=== PATIENT | female | born 1960 | race American Indian/Alaskan Native ===

== ENCOUNTER 2016-10-17 18:46 | Inpatient (IN) | payer MEDICARE ==
[2016-10-17 18:47] VITALS: BMI 33.3
[2016-10-17] MEDS ORDERED: Albuterol-Ipratrop 3 mg / 0.5 (3 ml) UD INH STA ×3 (19:17→19:34)
[2016-10-17] MEDS ORDERED: Albuterol-Ipratrop 3 mg / 0.5 (3 ml) UD ONE ×2 (19:37→19:57)
--- NOTE | 2016-10-17 19:47 | ED PDOC ---
HPI: SOB/CHF/COPD Time Seen by Provider: 10/17/16 19:14 Chief Complaint (Nursing): Shortness Of Breath Chief Complaint (Provider): Shortness Of Breath History Per: Patient History/Exam Limitations: no limitations Onset/Duration Of Symptoms: Days (x 1 week) Current Symptoms Are (Timing): Still Present Additional Complaint(s): Jonny is a 56 y/o female with a past medical history of asthma, pulmonary sarcoid, pulmonary hypertension, and CHF, who presents to the emergency department with complaints of shortness of breath associated with chest tightness, and a productive cough and yellow phlegm ongoing x 1 week. Patient denies fever, chills, nausea, vomiting, and diarrhea. Patient reports seeing her PCP/logistic specialist Dr. Lincoln who started her on Prednisone with no improvement in symptoms. Patient sent to ED by Dr. Lincoln. PMD: Dr. Vinnie Lincoln MD Past Medical History Reviewed: Historical Data, Nursing Documentation, Vital Signs Vital Signs: Last Vital Signs Temp 98.3 F 10/18/16 00:45 Pulse 90 10/18/16 00:45 Resp 18 10/18/16 00:45 BP 140/95 H 10/18/16 00:45 Pulse Ox 96 10/18/16 00:45 - Medical History PMH: Anxiety, Asthma, CAD, Cardia Arrhythmia, CHF, COPD, Depression, HTN, Pneumonia Denies: Arthritis, Atrial Fibrillation, Diabetes, HIV, Hypercholesterolemia, Hypothyroidism, Mitral Valve Prolapse, Peripheral Edema, Chronic Kidney Disease , Rheumatoid Arthritis, Seizures, TIA Other PMH: Pulmonary hypertension, pulmonary sarcoid - Surgical History Surgical History: Back Surgery (lumbar) Denies: Pacemaker Other surgeries: Left hip replacement due to traumatic injury, Automated Implantable Cardioverter-Defibrillator (AICD) - Family History Family History: States: Unknown Family Hx - Social History Current smoker - smoking cessation education provided: No Alcohol: None Drugs: Denies - Immunization History Hx Tetanus Toxoid Vaccination: No Hx Influenza Vaccination: No Hx Pneumococcal Vaccination: No - Home Medications Home Medications: Ambulatory Orders Medication Instructions Recorded Albuterol 0.083% [Albuterol 0.083% 2.5 mg NEB BID 10/17/16 Inhal Marilou (2.5 mg/3 ml) UD] Albuterol Sulfate [Proair Hfa] 2 puff NEB PRN PRN 10/17/16 Carvedilol [Coreg] 12.5 mg PO BID 10/17/16 Cyclobenzaprine [Flexeril] 10 mg PO DAILY 10/17/16 Fluticasone/Salmeterol 100/50 2 puff NEB DAILY 10/17/16 [Advair Diskus 100/50] Furosemide [Lasix] 40 mg PO DAILY 10/17/16 Omeprazole [Omeprazole] 40 mg PO DAILY 10/17/16 Potassium Chloride [K-Dur 20 mEq 20 meq PO DAILY 10/17/16 ER Tab] Ramipril [Altace] 10 mg PO DAILY 10/17/16 oxyCODONE [oxyCODONE Immediate 10 mg PO PRN PRN 10/17/16 Release Tab] - Allergies Allergies/Adverse Reactions: Allergies Allergy/AdvReac Type Severity Reaction Status Date / Time No Known Allergies Allergy Verified 08/21/15 22:32 Review of Systems ROS Statement: Except As Marked, All Systems Reviewed And Found Negative Constitutional: Negative for: Fever, Chills Cardiovascular: Positive for: Chest Pain (chest tightness) Respiratory: Positive for: Cough (Productive cough with yellow phlegm production ), Shortness of Breath Gastrointestinal: Negative for: Nausea, Vomiting, Diarrhea Physical Exam - Reviewed Nursing Documentation Reviewed: Yes Vital Signs Reviewed: Yes - Physical Exam Appears: Positive for: Non-toxic, No Acute Distress Head Exam: Positive for: ATRAUMATIC, NORMAL INSPECTION, NORMOCEPHALIC Skin: Positive for: Normal Color, Warm, Dry Eye Exam: Positive for: EOMI, Normal appearance, PERRL ENT: Positive for: Normal ENT Inspection Neck: Positive for: Normal, Painless ROM, Supple Cardiovascular/Chest: Positive for: Regular Rate, Rhythm Respiratory: Positive for: Rhonchi (Bilateral diffuse rhonchi), Other ( Decreased air entry) Gastrointestinal/Abdominal: Positive for: Normal Exam, Soft. Negative for: Tenderness Back: Positive for: Normal Inspection. Negative for: Vertebral Tenderness Extremity: Positive for: Normal ROM. Negative for: Pedal Edema, Calf Tenderness , Other (JVD) Neurologic/Psych: Positive for: Alert, Oriented. Negative for: Motor/Sensory Deficits - Laboratory Results Result Diagrams: 10/17/16 20:29 10/17/16 20:08 - ECG O2 Sat by Pulse Oximetry: 98 (RA) Pulse Ox Interpretation: Normal - Other Rad Chest X-Ray X-Ray: Interpreted by Me, Viewed By Me X-Ray Interpretation: Cardiomegaly and bilateral congestion with AICD present Medical Decision Making Medical Decision Making: Time: 19:30 Initial Impression: 56 y/o female with productive cough, dyspnea, and a past medical history of pulmonary hypertension, pulmonary sarcoid, CHF and asthma with failure of outpatient treatment Initial Plan: --Labs --CXR --EKG --Trial of Lasix (40 mg IV), methylprednisolone (125 mg IV), and Albuterol/ Ipratropium (3 mL INH) --Peak Flow pre/post treatment --Reevaluation Time: 20:30 --Admit to observation for asthma and CHF exacerbation Time: 20:35 --Consulted with Dr. Lincoln who agreed to place patient under his service for asthma exacerbation and CHF Scribe Attestation: Documented by Brandi Quiñones, acting as a scribe for Dewayne Gilmore MD Provider Scribe Attestation: All medical record entries made by the Scribe were at my direction and personally dictated by me. I have reviewed the chart and agree that the record accurately reflects my personal performance of the history, physical exam, medical decision making, and the department course for this patient. I have also personally directed, reviewed, and agree with the discharge instructions and disposition. Disposition - Clinical Impression Clinical Impression: Chronic congestive heart failure, Sarcoidosis, Asthma - Patient ED Disposition Is Patient to be Admitted: Yes Counseled Patient/Family Regarding: Studies Performed, Diagnosis - Disposition Disposition Time: 20:00 Condition: STABLE - Pt Status Changed To: Hospital Disposition Of: Observation
[2016-10-17 20:28] LABS: ALB/GLOB RATIO 1.1 (1.0-2.1); ALT/SGPT 26 U/L (9-52); AST/SGOT 25 U/L (14-36); BLOOD UREA NITROGEN 12 mg/dl (7-17); CALCIUM 9.4 mg/dL (8.4-10.2); GFR AFRICAN-AMERICAN > 60; GFR NON-AFRICAN AMERICAN > 60
[2016-10-17 20:35] LABS: BASO # 0.1 K/uL (0.0-0.2); BASO % 0.5 % (0.0-2.0); EOS # 0.1 K/uL (0.0-0.7); EOS % 0.5 % (0.0-4.0); HEMOGLOBIN 13.1 g/dL (12.0-16.0); LYMPH # 4.7 K/uL (1.0-4.3); LYMPH % 35.6 % (20.0-40.0); MEAN CELL VOLUME 89.6 fl (81.0-99.0); MEAN CORPUSCULAR HGB CONC 32.3 g/dL (33.0-37.0); MEAN PLATELET VOLUME 9.1 fl (7.2-11.7); MONO # 1.3 K/uL (0.0-0.8); MONO % 9.6 % (0.0-10.0); NEUT % 53.8 % (50.0-75.0); RBC 4.53 Mil/uL (3.80-5.20); RED CELL DISTRIBUTION WIDTH 16.5 % (11.5-14.5); WHITE BLOOD COUNT 13.1 K/uL (4.8-10.8)
[2016-10-17 20:41] LABS: B-TYPE NATRIURETIC PEPTIDE 748 pg/ml (0-900)
[2016-10-17 20:53] LABS: PARTIAL THROMBOPLASTIN TIME 32.3 Seconds (25.6-37.1); PROTHROMBIN TIME 10.8 Seconds (9.8-13.1)
[2016-10-17 21:22] LABS: SQUAMOUS EPITHIAL < 1 /hpf (0-5); URINE BACTERIA RARE (<OCC); URINE BILIRUBIN NEGATIVE (NEGATIVE); URINE BLOOD NEGATIVE (NEGATIVE); URINE CLARITY CLEAR (Clear); URINE COLOR STRAW (YELLOW); URINE GLUCOSE (UA) NEG (Normal); URINE LEUKOCYTE ESTERASE TRACE Leu/uL (Negative); URINE NITRATE NEGATIVE (NEGATIVE); URINE PROTEIN NEGATIVE (NEGATIVE); URINE UROBILINOGEN 0.2-1.0 mg/dL (0.2-1.0)
[2016-10-17] MEDS ORDERED: Oxycodone/Acetaminophen 5/325 mg Tab PO STA (22:41)
[2016-10-17] MEDS ORDERED: Oxycodone/Acetaminophen 5/325 mg Tab ONE (23:06)
[2016-10-18] MEDS ORDERED: Sodium Chloride 3% for Inhalation 4 ML VIAL.NEB IH PRN (01:18)
[2016-10-18] MEDS ORDERED: guaiFENesin 200 mg/10 ml Syrup UD PO PRN (01:18)
[2016-10-18] MEDS: Albuterol-Ipratrop 3 mg / 0.5 (3 ml) UD INH SCH ×4 (02:44→19:11)
[2016-10-18] MEDS: Oxycodone/Acetaminophen 5/325 mg Tab PO PRN ×3 (04:47→21:55)
[2016-10-18 07:47] LABS: ABG ALLEN TEST YES; ARTERIAL BLOOD GAS HCO3 29.1 mmol/L (21-28); ARTERIAL BLOOD GAS HEMOGLOBIN 13.6 g/dL (11.7-17.4); ARTERIAL BLOOD GAS O2 CAPACITY 18.5 mL/dL (16-24); ARTERIAL BLOOD GAS O2 CONTENT 18.1 ML/dL (15-23); ARTERIAL BLOOD GAS PCO2 51 mm/Hg (35-45); ARTERIAL BLOOD GAS PO2 78 mm/Hg (80-100); ARTERIAL BLOOD GAS TCO2 33.2 mmol/L (22-28)
--- NOTE | 2016-10-18 08:18 | RAD ---
HISTORY: cough COMPARISON: Chest x-ray performed 10/02/15 TECHNIQUE: Chest, one view. FINDINGS: Examination limited by habitus. LUNGS: Linear atelectasis, left upper lobe. No focal consolidation. Please note that chest x-ray has limited sensitivity for the detection of pulmonary masses. PLEURA: No significant pleural effusion identified. No definite pneumothorax . CARDIOVASCULAR: Single lead left-sided AICD. Heart size appears top normal. OSSEOUS STRUCTURES: Degenerative changes. VISUALIZED UPPER ABDOMEN: Unremarkable. OTHER FINDINGS: None. IMPRESSION: Left-sided AICD. Linear atelectasis, left upper lobe.
[2016-10-18] MEDS: Fluticasone-Salmeterol 100-50mcg Diskus INH SCH ×2 (08:35→16:30)
[2016-10-18] MEDS: Enoxaparin 40 mg Syringe SC SCH (08:37)
[2016-10-18] MEDS: Pantoprazole 40 mg EC Tab PO SCH (08:37)
[2016-10-18] MEDS: Potassium Chloride 20 mEq ER Tab PO SCH (08:37)
[2016-10-18] MEDS: Azithromycin 500 MG in Sodium Chloride 0.9% 250 ML IVPB SCH (08:39)
[2016-10-18] MEDS: methylPREDNISolone 40 MG in Sodium Chloride 0.9% 50 ML IV SCH ×2 (08:39→16:29)
[2016-10-18 10:26] LABS: HEMOGLOBIN 13.2 g/dL (12.0-16.0); MEAN CELL VOLUME 88.6 fl (81.0-99.0); MEAN CORPUSCULAR HEMOGLOBIN 29.2 pg (27.0-31.0); MEAN CORPUSCULAR HGB CONC 32.9 g/dL (33.0-37.0); RBC 4.52 Mil/uL (3.80-5.20); RED CELL DISTRIBUTION WIDTH 16.7 % (11.5-14.5); WHITE BLOOD COUNT 11.2 K/uL (4.8-10.8)
[2016-10-18 10:46] LABS: BLOOD UREA NITROGEN 14 mg/dl (7-17); CALCIUM 9.9 mg/dL (8.4-10.2); GFR AFRICAN-AMERICAN > 60; GFR NON-AFRICAN AMERICAN > 60
[2016-10-18 10:47] LABS: B-TYPE NATRIURETIC PEPTIDE 1020 pg/ml (0-900)
--- NOTE | 2016-10-18 13:48 | CARD ---
APPROVED REPORT EKG Measurement Heart [id number] <Conclusion> Sinus rhythm with occasional premature ventricular complexes Biatrial enlargement Left ventricular hypertrophy T wave abnormality, consider lateral ischemia Abnormal ECG
--- NOTE | 2016-10-18 13:53 | CARD ---
APPROVED REPORT EKG Measurement Heart [id number] <Conclusion> Normal sinus rhythm Left atrial enlargement Nonspecific ST and T wave abnormality Abnormal ECG
--- NOTE | 2016-10-18 23:24 | CP.PCM.CON ---
History of Present Illness - History of Present Illness History of Present Illness: CC: Cough. HPI: I have been requested on cardiology consultation by Dr. Lincoln for this patient who is known to our practice. She has a history of sarcoidosis and cardiomyopathy for which an AICD was implanted. She is is admitted for dyspnea and a productive cough with greenish sputum as well as palpitations. She denies chest pain, fever, chills or any other cardiac complaint. Cardiology is consulted for 8 beats of NSVT. Otherwise the patient has no complaints. Review of Systems - Constitutional Constitutional: As Per HPI - EENT Eyes: As Per HPI Nose/Mouth/Throat: As Per HPI - Cardiovascular Cardiovascular: Palpitations - Respiratory Respiratory: Cough, Excessive Mucous Production - Genitourinary Genitourinary: As Per HPI - Integumentary Integumentary: As Per HPI - Neurological Neurological: As Per HPI - Psychiatric Psychiatric: As Per HPI - Endocrine Endocrine: As Per HPI - Hematologic/Lymphatic Hematologic: As Per HPI Past Patient History - Infectious Disease Hx of Infectious Diseases: None - Past Medical History & Family History Past Medical History?: Yes - Past Social History Alcohol: None Drugs: Denies - CARDIAC Hx Atrial Fibrillation: No Hx Cardia Arrhythmia: Yes Hx Congestive Heart Failure: Yes Hx Hypercholesterolemia: No Hx Hypertension: Yes Hx Mitral Valve Prolapse: No Hx Pacemaker: No Hx Peripheral Edema: No - PULMONARY Hx Asthma: Yes Hx Chronic Obstructive Pulmonary Disease (COPD): Yes Hx Pneumonia: Yes - NEUROLOGICAL Hx Seizures: No Hx Transient Ischemic Attacks (TIA): No - HEENT Hx HEENT Problems: No - RENAL Hx Chronic Kidney Disease: No - ENDOCRINE/METABOLIC Hx Hypothyroidism: No - HEMATOLOGICAL/ONCOLOGICAL Hx Human Immunodeficiency Virus (HIV): No - INTEGUMENTARY Hx Dermatological Problems: No - MUSCULOSKELETAL/RHEUMATOLOGICAL Hx Arthritis: No Hx Rheumatoid Arthritis: No - GASTROINTESTINAL Hx Gastrointestinal Disorders: No - GENITOURINARY/GYNECOLOGICAL Hx Genitourinary Disorders: No - PSYCHIATRIC Hx Anxiety: Yes Hx Depression: Yes - SURGICAL HISTORY Hx Surgeries: Yes Hx Joint Replacement: Yes (LEFT HIP) Other/Comment: BACK SURGERY, AICD placement - ANESTHESIA Hx Anesthesia: Yes Hx Anesthesia Reactions: No Hx Malignant Hyperthermia: No Meds Allergies/Adverse Reactions: Allergies Allergy/AdvReac Type Severity Reaction Status Date / Time No Known Allergies Allergy Verified 08/21/15 22:32 - Medications Medications: Current Medications Albuterol/Ipratropium (Duoneb 3 Mg/0.5 Mg (3 Ml) Ud) 3 ml INH RQ6 [facility] Last Admin: 10/18/16 19:11 Dose: 3 ml Aspirin (Aspirin Chewable) 81 mg PO DAILY [facility] Last Admin: 10/18/16 08:37 Dose: 81 mg Carvedilol (Coreg) 12.5 mg PO Q12 [facility] Last Admin: 10/18/16 21:55 Dose: 12.5 mg Clotrimazole (Lotrimin 1% Cream) 1 applic TOP BID [facility] Last Admin: 10/18/16 16:29 Dose: 1 applic Cyclobenzaprine HCl (Flexeril) 10 mg PO DAILY [facility] Last Admin: 10/18/16 08:36 Dose: 10 mg Enoxaparin Sodium (Lovenox) 40 mg SC DAILY [facility] PRN Reason: Protocol Last Admin: 10/18/16 08:37 Dose: 40 mg Furosemide (Lasix) 40 mg IV DAILY [facility] Last Admin: 10/18/16 08:38 Dose: 40 mg Guaifenesin (Robitussin) 200 mg PO Q4 PRN PRN Reason: Cough Azithromycin 500 mg/ Sodium (Chloride) 250 mls @ 250 mls/hr IVPB DAILY [facility] Last Admin: 10/18/16 08:39 Dose: 250 mls/hr Methylprednisolone 40 mg/ (Sodium Chloride) 50 mls @ 100 mls/hr IV Q8 [facility] Last Admin: 10/18/16 16:29 Dose: 100 mls/hr Ondansetron HCl (Zofran Inj) 4 mg IVP Q4 PRN PRN Reason: Nausea/Vomiting Last Admin: 10/18/16 17:44 Dose: 4 mg Oxycodone/Acetaminophen (Percocet 5/325 Mg Tab) 1 tab PO Q4 PRN PRN Reason: Pain, moderate (4-7) Stop: 10/21/16 01:19 Last Admin: 10/18/16 21:55 Dose: 1 tab Pantoprazole Sodium (Protonix Ec Tab) 40 mg PO DAILY [facility] Last Admin: 10/18/16 08:37 Dose: 40 mg Potassium Chloride (K-Dur 20 Meq Er Tab) 20 meq PO DAILY [facility] Last Admin: 10/18/16 08:37 Dose: 20 meq Ramipril (Altace) 10 mg PO DAILY [facility] Last Admin: 10/18/16 08:36 Dose: 10 mg Fluticasone/Salmeterol (Advair Diskus 100/50) 1 puff INH BID [facility] Last Admin: 10/18/16 16:30 Dose: 1 puff Physical Exam - Constitutional Appears: Well, Non-toxic, No Acute Distress - Head Exam Head Exam: NORMAL INSPECTION, NORMOCEPHALIC - Eye Exam Eye Exam: Normal appearance, PERRL - ENT Exam ENT Exam: Mucous Membranes Moist - Neck Exam Neck exam: Positive for: Normal Inspection - Respiratory Exam Respiratory Exam: Clear to Auscultation Bilateral, NORMAL BREATHING PATTERN - Cardiovascular Exam Cardiovascular Exam: REGULAR RHYTHM, +S1, +S2, Systolic Murmur - GI/Abdominal Exam GI & Abdominal Exam: Soft - Rectal Exam Rectal Exam: Deferred - Extremities Exam Extremities exam: Positive for: full ROM, normal inspection - Back Exam Back exam: NORMAL INSPECTION - Neurological Exam Neurological exam: Alert, Oriented x3 - Psychiatric Exam Psychiatric exam: Normal Affect, Normal Mood - Skin Skin Exam: Dry, Normal Color, Warm Results - Vital Signs Recent Vital Signs: Last Vital Signs Temp 97.7 F 10/18/16 19:44 Pulse 68 10/18/16 21:55 Resp 18 10/18/16 19:44 BP 122/75 10/18/16 21:55 Pulse Ox 97 10/18/16 19:44 - Labs Result Diagrams: 10/18/16 09:00 10/18/16 09:00 Assessment & Plan - Assessment and Plan (Free Text) Assessment: Cough Dyspnea Sarcoid CMP NSVT Plan: Continue present medical management. Beta blockers. Will follow up PRN. Thank you. - Date & Time Date: 10/18/16 Time: 12:05
[2016-10-19] MEDS: methylPREDNISolone 40 MG in Sodium Chloride 0.9% 50 ML IV SCH ×3 (00:38→20:23)
--- NOTE | 2016-10-19 01:22 | HP ---
HISTORY OF PRESENT ILLNESS: Ms. Logan is a 56-year-old female who was admitted at emergency room because of shortness of breath, exercise intolerance cough, mild fever, exercise intolerance for the past several days prior to presentation. She was in the office about a week prior to this admission, placed on antibiotics, steroids, and *------*, but symptoms have worsened. She showed up in the emergency room, had hypoxemia, we will therefore advise admission for workup and therapy. 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 FAMILY HISTORY: Unrevealing. SOCIAL HISTORY: She quit smoking years ago. Does not drink alcohol and leaves alone. REVIEW OF SYSTEMS: Essentially remarkable for occasional shortness of breath and back pain for which she had undergone surgery. PHYSICAL EXAMINATION GENERAL: The patient is alert, oriented; appears mildly dyspneic at rest and had mild exertion. VITAL SIGNS: Blood pressure 134/74, pulse of 67, respiratory rate 18 to 20 per minute. She is afebrile, O2 stat 99% on nasal cannula oxygen. SKIN: Shows fair turgor with rash of thighs and legs. HEENT: Pupils equal, reactive to light and accommodation. She has fair hygiene. NECK: JVP flat. LUNGS: Poor aeration with wheezing and rales. HEART: Regular with *------* pacemaker in place at the left anterior chest wall. ABDOMEN: Soft, nontender, organomegaly. EXTREMITIES: Shows no edema or cyanosis. CENTRAL NERVOUS SYSTEM: Grossly intact. LABORATORY DATA: Remarkable of WBC of 13.1, hemoglobin 13.1, platelet count of 183,000. Sodium 139, potassium 3.5, BUN 12, creatinine 0.8. ProBNP 748, repeat 1020. ABGs *------* 28% FiO2, PH 7.4, pCO2 of 61, pO2 of 78, bicarbonates 29 with O2 sat 94%. Chest x-ray, linear atelectasis of left upper lobe, no consolidation. EKG; sinus rhythm with occasional PVCs, biatrial enlargement, left ventricular hypertrophy, T-wave abnormality, consider lateral ischemia, telemetry monitoring was remarkable for short run of ventricular tachycardia. IMPRESSION: Acute exacerbation of chronic obstructive pulmonary disease, cardiomyopathy with cardiac arrhythmias, pulmonary sarcoidosis, upper respiratory tract infection. PLAN: Kruse cultures, IV antibiotics, IV steroids, aerosolized bronchodilators. Pancreatic evaluation, further therapy will depend on findings. Vinnie Lincoln MD
[2016-10-19] MEDS: Albuterol-Ipratrop 3 mg / 0.5 (3 ml) UD INH SCH ×4 (01:42→19:25)
[2016-10-19] MEDS: Potassium Chloride 20 mEq ER Tab PO SCH (08:36)
[2016-10-19] MEDS: Fluticasone-Salmeterol 100-50mcg Diskus INH SCH ×2 (08:36→16:32)
[2016-10-19] MEDS: Pantoprazole 40 mg EC Tab PO SCH (08:36)
[2016-10-19] MEDS: Azithromycin 500 MG in Sodium Chloride 0.9% 250 ML IVPB SCH (08:39)
[2016-10-19] MEDS: Oxycodone/Acetaminophen 5/325 mg Tab PO PRN ×3 (08:40→23:08)
[2016-10-19] MEDS: Enoxaparin 40 mg Syringe SC SCH (08:43)
--- NOTE | 2016-10-19 09:35 | CP.PCM.PN ---
Subjective - Date & Time of Evaluation Date of Evaluation: 10/19/16 Time of Evaluation: 09:36 - Subjective Subjective: SOB IMPROVING COUGH LESS DENIES CHEST PAINS Objective - Vital Signs/Intake and Output Vital Signs (last 24 hours): Temp Pulse Resp BP Pulse Ox 97.6 F 72 18 121/70 98 10/19/16 08:00 10/19/16 08:39 10/19/16 08:00 10/19/16 08:39 10/19/16 08:00 - Medications Medications: Current Medications Albuterol/Ipratropium (Duoneb 3 Mg/0.5 Mg (3 Ml) Ud) 3 ml INH RQ6 [facility] Last Admin: 10/19/16 07:49 Dose: 3 ml Aspirin (Aspirin Chewable) 81 mg PO DAILY [facility] Last Admin: 10/19/16 08:36 Dose: 81 mg Carvedilol (Coreg) 12.5 mg PO Q12 [facility] Last Admin: 10/19/16 08:39 Dose: 12.5 mg Clotrimazole (Lotrimin 1% Cream) 1 applic TOP BID [facility] Last Admin: 10/18/16 16:29 Dose: 1 applic Cyclobenzaprine HCl (Flexeril) 10 mg PO DAILY [facility] Last Admin: 10/19/16 08:36 Dose: 10 mg Enoxaparin Sodium (Lovenox) 40 mg SC DAILY [facility] PRN Reason: Protocol Last Admin: 10/19/16 08:43 Dose: 40 mg Furosemide (Lasix) 40 mg IV DAILY [facility] Last Admin: 10/19/16 08:39 Dose: 40 mg Guaifenesin (Robitussin) 200 mg PO Q4 PRN PRN Reason: Cough Azithromycin 500 mg/ Sodium (Chloride) 250 mls @ 250 mls/hr IVPB DAILY [facility] Last Admin: 10/19/16 08:39 Dose: 250 mls/hr Methylprednisolone 40 mg/ (Sodium Chloride) 50 mls @ 100 mls/hr IV Q8 [facility] Last Admin: 10/19/16 08:40 Dose: 100 mls/hr Ondansetron HCl (Zofran Inj) 4 mg IVP Q4 PRN PRN Reason: Nausea/Vomiting Last Admin: 10/18/16 17:44 Dose: 4 mg Oxycodone/Acetaminophen (Percocet 5/325 Mg Tab) 1 tab PO Q4 PRN PRN Reason: Pain, moderate (4-7) Stop: 10/21/16 01:19 Last Admin: 10/19/16 08:40 Dose: 1 tab Pantoprazole Sodium (Protonix Ec Tab) 40 mg PO DAILY [facility] Last Admin: 10/19/16 08:36 Dose: 40 mg Potassium Chloride (K-Dur 20 Meq Er Tab) 20 meq PO DAILY [facility] Last Admin: 10/19/16 08:36 Dose: 20 meq Ramipril (Altace) 10 mg PO DAILY [facility] Last Admin: 10/19/16 08:37 Dose: 10 mg Fluticasone/Salmeterol (Advair Diskus 100/50) 1 puff INH BID [facility] Last Admin: 10/19/16 08:36 Dose: 1 puff - Labs Labs: PT 10.8 Seconds (9.8-13.1) 10/17/16 20:29 INR 1.0 (0.9-1.2) 10/17/16 20:29 APTT 32.3 Seconds (25.6-37.1) 10/17/16 20:29 - Constitutional Appears: No Acute Distress - Head Exam Head Exam: ATRAUMATIC, NORMAL INSPECTION, NORMOCEPHALIC - Eye Exam Eye Exam: EOMI, Normal appearance, PERRL Pupil Exam: NORMAL ACCOMODATION, PERRL - ENT Exam ENT Exam: Mucous Membranes Moist, Normal Exam - Neck Exam Neck Exam: Full ROM, Normal Inspection. absent: Lymphadenopathy - Respiratory Exam Respiratory Exam: Decreased Breath Sounds, Rales, Wheezes, NORMAL BREATHING PATTERN - Cardiovascular Exam Cardiovascular Exam: REGULAR RHYTHM, +S1, +S2. absent: Murmur - GI/Abdominal Exam GI & Abdominal Exam: Soft, Normal Bowel Sounds. absent: Tenderness - Rectal Exam Rectal Exam: NORMAL INSPECTION - Extremities Exam Extremities Exam: Full ROM, Normal Capillary Refill, Normal Inspection. absent : Joint Swelling, Pedal Edema - Back Exam Back Exam: NORMAL INSPECTION - Neurological Exam Neurological Exam: Alert, Awake, CN II-XII Intact, Normal Gait, Oriented x3 - Psychiatric Exam Psychiatric exam: Normal Affect, Normal Mood - Skin Skin Exam: Dry, Intact, Normal Color, Warm Assessment and Plan - Assessment and Plan (Free Text) Assessment: ACUTE EXAC OF COPD--IMPROVING SARCOID ARRYTHMIAS-STABLE CARDIOMYOPATHY Plan: CONTINUE PRESENT RX SCHEDULE FOR ECHO
[2016-10-20] MEDS: Albuterol-Ipratrop 3 mg / 0.5 (3 ml) UD INH SCH ×2 (01:01→07:51)
[2016-10-20 05:29] VITALS: O2SAT 99
[2016-10-20] MEDS: Fluticasone-Salmeterol 100-50mcg Diskus INH SCH (09:21)
[2016-10-20] MEDS: Enoxaparin 40 mg Syringe SC SCH (09:21)
[2016-10-20] MEDS: Potassium Chloride 20 mEq ER Tab PO SCH (09:23)
[2016-10-20] MEDS: Pantoprazole 40 mg EC Tab PO SCH (09:24)
[2016-10-20] MEDS: methylPREDNISolone 40 MG in Sodium Chloride 0.9% 50 ML IV SCH (09:24)
[2016-10-20] MEDS: Azithromycin 500 MG in Sodium Chloride 0.9% 250 ML IVPB SCH (09:25)
--- NOTE | 2016-10-20 09:33 | CP.PCM.DIS ---
Provider - Provider Date of Admission: 10/18/16 11:02 Attending physician: Vinnie Hamm MD Time Spent in preparation of Discharge (in minutes): 30 Diagnosis - Discharge Diagnosis (1) Arrhythmia Status: Acute (2) Upper respiratory infection Status: Acute (3) Sarcoidosis Status: Acute (4) COPD exacerbation Status: Acute (5) Cardiomyopathy Status: Acute (6) Hypertension Status: Acute Hospital Course - Lab Results Lab Results: Most Recent Lab Values WBC 11.2 K/uL (4.8-10.8) H 10/18/16 09:00 RBC 4.52 Mil/uL (3.80-5.20) 10/18/16 09:00 Hgb 13.2 g/dL (12.0-16.0) 10/18/16 09:00 Hct 40.1 % (34.0-47.0) 10/18/16 09:00 MCV 88.6 fl (81.0-99.0) 10/18/16 09:00 MCH 29.2 pg (27.0-31.0) 10/18/16 09:00 MCHC 32.9 g/dL (33.0-37.0) L 10/18/16 09:00 RDW 16.7 % (11.5-14.5) H 10/18/16 09:00 Plt Count 173 K/uL (130-400) 10/18/16 09:00 MPV 9.1 fl (7.2-11.7) 10/17/16 20:29 Neut % (Auto) 53.8 % (50.0-75.0) 10/17/16 20:29 Lymph % (Auto) 35.6 % (20.0-40.0) 10/17/16 20:29 [place] % (Auto) 9.6 % (0.0-10.0) 10/17/16 20:29 Eos % (Auto) 0.5 % (0.0-4.0) 10/17/16 20:29 Baso % (Auto) 0.5 % (0.0-2.0) 10/17/16 20:29 Neut # 7.0 K/uL (1.8-7.0) 10/17/16 20:29 Lymph # 4.7 K/uL (1.0-4.3) H 10/17/16 20:29 [place] # 1.3 K/uL (0.0-0.8) H 10/17/16 20:29 Eos # 0.1 K/uL (0.0-0.7) 10/17/16 20: Baso # 0.1 K/uL (0.0-0.2) 10/17/16 20:29 PT 10.8 Seconds (9.8-13.1) 10/17/16 20: INR 1.0 (0.9-1.2) 10/17/16 20:29 APTT 32.3 Seconds (25.6-37.1) 10/17/16 20:29 pCO2 51 mm/Hg (35-45) H 10/18/16 07:37 pO2 78 mm/Hg (80-100) L 10/18/16 07:37 HCO3 29.1 mmol/L (21-28) H 10/18/16 07:37 ABG pH 7.40 (7.35-7.45) 10/18/16 07:37 ABG Total CO2 33.2 mmol/L (22-28) H 10/18/16 07:37 ABG O2 Saturation 98.0 % (95-98) 10/18/16 07:37 ABG O2 Content 18.1 ML/dL (15-23) 10/18/16 07:37 ABG Base Excess 5.5 mmol/L (-2.0-3.0) H 10/18/16 07:37 ABG Hemoglobin 13.6 g/dL (11.7-17.4) 10/18/16 07:37 ABG Carboxyhemoglobin 1.9 % (0.5-1.5) H 10/18/16 07:37 POC ABG HHb (Measured) 1.9 % (0.0-5.0) 10/18/16 07:37 ABG Methemoglobin 1.9 % (0.0-3.0) 10/18/16 07:37 ABG O2 Capacity 18.5 mL/dL (16-24) 10/18/16 07:37 Camacho Test Yes 10/18/16 07:37 A-a O2 Difference 58.0 mm/Hg 10/18/16 07:37 Hgb O2 Saturation 94.4 % (95.0-98.0) L 10/18/16 07:37 FiO2 28.0 % 10/18/16 07:37 Sodium 141 mmol/l (132-148) 10/18/16 09:00 Potassium 4.2 MMOL/L (3.6-5.0) 10/18/16 09:00 Chloride 101 mmol/L (98-107) 10/18/16 09:00 Carbon Dioxide 29 mmol/L (22-30) 10/18/16 09:00 Anion Gap 14 (10-20) 10/18/16 09:00 BUN 14 mg/dl (7-17) 10/18/16 09:00 Creatinine 0.9 mg/dL (0.7-1.2) 10/18/16 09:00 Est GFR ( Amer) > 60 10/18/16 09:00 Est GFR (Non-Af Amer) > 60 10/18/16 09:00 Random Glucose 121 mg/dL (65-105) H 10/18/16 09:00 Calcium 9.9 mg/dL (8.4-10.2) 10/18/16 09:00 Total Bilirubin 0.5 mg/dl (0.2-1.3) 10/17/16 20:08 AST 25 U/L (14-36) 10/17/16 20:08 ALT 26 U/L (9-52) 10/17/16 20:08 Alkaline Phosphatase 138 U/L (38-126) H D 10/17/16 20:08 Troponin I 0.0150 ng/mL (0.00-0.120) 10/17/16 20:08 NT-Pro-B Natriuret Pep 1020 pg/ml (0-900) H 10/18/16 09:00 Total Protein 7.7 G/DL (6.3-8.2) 10/17/16 20:08 Albumin 4.0 g/dL (3.5-5.0) 10/17/16 20:08 Globulin 3.6 gm/dL (2.2-3.9) 10/17/16 20:08 Albumin/Globulin Ratio 1.1 (1.0-2.1) 10/17/16 20:08 Urine Color Straw (YELLOW) 10/17/16 20:59 Urine Clarity Clear (Clear) 10/17/16 20:59 Urine pH 7.0 (5.0-8.0) 10/17/16 20:59 Ur Specific [place] 1.008 (1.003-1.030) 10/17/16 20:59 Urine Protein Negative mg/dL (NEGATIVE) 10/17/16 20:59 Urine Glucose (UA) Neg mg/dL (Normal) 10/17/16 20:59 Urine Ketones Negative mg/dL (NEGATIVE) 10/17/16 20:59 Urine Blood Negative (NEGATIVE) 10/17/16 20:59 Urine Nitrate Negative (NEGATIVE) 10/17/16 20:59 Urine Bilirubin Negative (NEGATIVE) 10/17/16 20:59 Urine Urobilinogen 0.2-1.0 mg/dL (0.2-1.0) 10/17/16 20:59 Ur Leukocyte Esterase Trace Anna/uL (Negative) 10/17/16 20:59 Urine RBC (Auto) 1 /hpf (0-3) 10/17/16 20:59 Urine Microscopic WBC 1 /hpf (0-5) 10/17/16 20:59 Ur Squamous Epith Cells < 1 /hpf (0-5) 10/17/16 20:59 Urine Bacteria Rare (<OCC) 10/17/16 20:59 - Hospital Course Hospital Course: COUGH WITH SOB RESOLVED Discharge Exam - Head Exam Head Exam: ATRAUMATIC, NORMAL INSPECTION, NORMOCEPHALIC - Eye Exam Eye Exam: EOMI, Normal appearance, PERRL Pupil Exam: NORMAL ACCOMODATION, PERRL - GI/Abdominal Exam GI & Abdominal Exam: Normal Bowel Sounds - Rectal Exam Rectal Exam: NORMAL INSPECTION - Neurological Exam Neurological exam: Alert, CN II-XII Intact, Normal Gait, Oriented x3, Reflexes Normal - Psychiatric Exam Psychiatric exam: Normal Affect, Normal Mood - Skin Skin Exam: Dry, Intact, Normal Color, Warm Discharge Plan - Follow Up Plan Condition: STABLE Disposition: HOME/ ROUTINE Patient education suggested?: Yes Additional Instructions: D/C HOME FOLLOW UP WITH DR HAMM
[2016-10-20 13:04] VITALS: BP 124/76; PULSE 69; RESP 16; TEMP 97.9
--- NOTE | 2016-10-20 20:12 | CARD ---
APPROVED REPORT EXAM: Two-dimensional and M-mode echocardiogram with Doppler and color Doppler. Other Information Quality : GoodRhythm : Pacemaker INDICATION Cardiomyopathy Surgery/Intervention ICD/Pacemaker: 2D DIMENSIONS IVSd1.07 (0.7-1.1cm)LVDd5.16 (3.9-5.9cm) LVOT Diameter2.15 (1.8-2.4cm)PWd0.87 (0.7-1.1cm) IVSs1.08 (0.8-1.2cm)LVDs3.93 (2.5-4.0cm) FS (%) 23.9 %PWs1.15 (0.8-1.2cm) LVEF (%)50.0 (>50%) M-Mode DIMENSIONS Left Atrium (MM)4.36 (2.5-4.0cm)IVSd1.02 (0.7-1.1cm) Aortic Root2.59 (2.2-3.7cm)LVDd4.88 (4.0-5.6cm) Aortic Cusp Exc.1.60 (1.5-2.0cm)PWd1.10 (0.7-1.1cm) IVSs1.38 cmFS (%) 37 % LVDs3.09 (2.0-3.8cm)PWs1.54 cm Mitral Valve MV E Rozcaywh62.1cm/sMV DECEL [id number] A Yxsrsqsg18.4cm/s MV SZD50ccU/A ratio0.8MVA (PHT)2.56cm2 TDI E/Lateral E'0.0E/Medial E'0.0 Pulmonary Valve PV Peak Rxwqfiae178.5cm/s LEFT VENTRICLE The left ventricle is normal size. There is borderline concentric left ventricular hypertrophy. The left ventricular function is Borderline Regional wall motion abnormalities noted. Transmitral Doppler flow pattern is Grade I-abnormal relaxation pattern. RIGHT VENTRICLE The right ventricle is normal size. There is normal right ventricular wall thickness. The right ventricular systolic function is normal. There is a pacemaker lead in the right ventricle. ATRIA The left atrium is mildly dilated. The right atrium size is normal. AORTIC VALVE The aortic valve is not well visualized. No aortic regurgitation is present. There is no aortic valvular stenosis. MITRAL VALVE The mitral valve is mildly thickened. There is no mitral valve stenosis. Mitral regurgitation is mild. The mitral regurgitant jet is eccentrically directed. TRICUSPID VALVE The tricuspid valve is normal in structure There is trace tricuspid regurgitation. PULMONIC VALVE The pulmonary valve is normal in structure and function. There is no pulmonic valvular regurgitation. GREAT VESSELS The aortic root is normal in size. The IVC was not visualized. PERICARDIAL EFFUSION There is a trace loculated anterior pericardial effusion. <Conclusion> The left ventricle is normal size. There is borderline concentric left ventricular hypertrophy. The left ventricular function is normal. The left ventricular ejection fraction is borderline Regional wall motion abnormalities noted. Transmitral Doppler flow pattern is Grade I-abnormal relaxation pattern. Mitral regurgitation is mild.
== END 2016-10-20 14:05 | disposition home or self-care (01) | DRG 191 ==
LOC: H.ER 18:46 → H.ERHOLD 20:29 → H.TEL 10-18 00:17 → OBSVTOIN 10-18 11:02
PROVIDERS: ADMIT Internal Medicine Pulmonary Disease; ATTEND Internal Medicine Pulmonary Disease
DX: J44.1 Chronic obstructive pulmonary disease with (acute) exacerbation (principal); I47.2 Ventricular tachycardia; I27.2 Other secondary pulmonary hypertension; I11.0 Hypertensive heart disease with heart failure; I50.9 Heart failure, unspecified; D86.0 Sarcoidosis of lung; I25.10 Atherosclerotic heart disease of native coronary artery without angina pectoris; J06.9 Acute upper respiratory infection, unspecified; R09.02 Hypoxemia; Z87.891 Personal history of nicotine dependence; Z95.810 Presence of automatic (implantable) cardiac defibrillator; Z96.642 Presence of left artificial hip joint; J45.909 Unspecified asthma, uncomplicated; F41.9 Anxiety disorder, unspecified; F32.9 Major depressive disorder, single episode, unspecified; D86.85 Sarcoid myocarditis

== ENCOUNTER 2017-09-05 18:40 | Emergency (ER) | payer MEDICARE ==
[2017-09-05 18:48] VITALS: BMI 35.0
[2017-09-05] MEDS ORDERED: Albuterol-Ipratrop 3 mg / 0.5 (3 ml) UD INH STA (19:46)
[2017-09-05 20:12] LABS: BASO # 0.1 K/uL (0.0-0.2); BASO % 0.6 % (0.0-2.0); EOS # 0.2 K/uL (0.0-0.7); EOS % 1.7 % (0.0-4.0); HEMOGLOBIN 13.2 g/dL (12.0-16.0); LYMPH # 2.2 K/uL (1.0-4.3); LYMPH % 20.7 % (20.0-40.0); MEAN PLATELET VOLUME 9.2 fl (7.2-11.7); MONO # 1.2 K/uL (0.0-0.8); MONO % 11.1 % (0.0-10.0); NEUT # 6.9 K/uL (1.8-7.0); NEUT % 65.9 % (50.0-75.0); RBC 4.4 Mil/uL (3.80-5.20); RED CELL DISTRIBUTION WIDTH 14.9 % (11.5-14.5); WHITE BLOOD COUNT 10.5 K/uL (4.8-10.8)
[2017-09-05] MEDS ORDERED: Albuterol-Ipratrop 3 mg / 0.5 (3 ml) UD ONE (20:14)
[2017-09-05 20:22] LABS: ALB/GLOB RATIO 1.1 (1.0-2.1); ALBUMIN 4.1 g/dL (3.5-5.0); ALT/SGPT 26 U/L (9-52); AST/SGOT 30 U/L (14-36); BLOOD UREA NITROGEN 14 mg/dl (7-17); CALCIUM 9.3 mg/dL (8.4-10.2); GFR AFRICAN-AMERICAN > 60; GFR NON-AFRICAN AMERICAN > 60; INR 1.2 (0.9-1.2); PARTIAL THROMBOPLASTIN TIME 32.6 Seconds (25.6-37.1); PROTHROMBIN TIME 13.3 Seconds (9.8-13.1)
[2017-09-05 20:33] LABS: B-TYPE NATRIURETIC PEPTIDE 348 pg/ml (0-900)
--- NOTE | 2017-09-05 21:24 | ED PDOC ---
HPI: SOB/CHF/COPD Time Seen by Provider: 09/05/17 19:05 Chief Complaint (Nursing): Shortness Of Breath Chief Complaint (Provider): shortness of breath History Per: Patient History/Exam Limitations: no limitations Onset/Duration Of Symptoms: Other (2 weeks) Current Respiratory Medications: Albuterol Associated Symptoms: denies: Fever, Productive Cough Additional Complaint(s): 56 year old female presents to the ED complaining of shortness of breath and chest tightness onset for 2 days. Reports of cough with green sputum and sore throat. States she had not relief with Albuterol. Denies leg swelling, fever, nasal drainage, recent sick contacts or travel. Patient is well known to the ED. PMD: Vinnie Lincoln I Past Medical History Reviewed: Historical Data, Nursing Documentation, Vital Signs Vital Signs: Last Vital Signs Temp 98.2 F 09/05/17 21:27 Pulse 104 H 09/05/17 21:27 Resp 16 09/05/17 21:27 BP 147/93 H 09/05/17 21:27 Pulse Ox 97 09/05/17 21:44 - Medical History PMH: Anxiety, Asthma, CAD, Cardia Arrhythmia, CHF, COPD, Depression, HTN, Pneumonia Denies: Arthritis, Atrial Fibrillation, Diabetes, HIV, Hypercholesterolemia, Hypothyroidism, Mitral Valve Prolapse, Peripheral Edema, Chronic Kidney Disease , Rheumatoid Arthritis, Seizures, TIA - Surgical History Surgical History: Back Surgery (lumbar) Denies: Pacemaker - Family History Family History: States: Unknown Family Hx - Social History Current smoker - smoking cessation education provided: No (Former Smoker) Alcohol: None Drugs: Denies - Immunization History Hx Tetanus Toxoid Vaccination: No Hx Influenza Vaccination: No Hx Pneumococcal Vaccination: No - Home Medications Home Medications: Ambulatory Orders Medication Instructions Recorded Albuterol 0.083% [Albuterol 0.083% 2.5 mg NEB BID 10/17/16 Inhal Marilou (2.5 mg/3 ml) UD] Albuterol Sulfate [Proair Hfa] 2 puff NEB PRN PRN 10/17/16 Carvedilol [Coreg] 12.5 mg PO BID 10/17/16 Cyclobenzaprine [Flexeril] 10 mg PO DAILY 10/17/16 Fluticasone/Salmeterol 100/50 2 puff NEB DAILY 07/14/17 [Advair Diskus 100/50] Furosemide [Lasix] 40 mg PO DAILY 10/17/16 Omeprazole 40 mg PO DAILY 10/17/16 Potassium Chloride [K-Dur 20 mEq 20 meq PO DAILY 10/17/16 ER Tab] Ramipril [Altace] 10 mg PO DAILY 10/17/16 oxyCODONE [oxyCODONE Immediate 10 mg PO PRN PRN 10/17/16 Release Tab] Albuterol 0.083% [Albuterol 3 ml IH Q4 PRN #50 neb 09/05/17 Sulfate 3 Ml] Azithromycin [Zithromax] 250 mg PO DAILY #6 dose 09/05/17 Prednisone 50 mg PO DAILY #4 tablet 09/05/17 - Allergies Allergies/Adverse Reactions: Allergies Allergy/AdvReac Type Severity Reaction Status Date / Time No Known Allergies Allergy Verified 08/21/15 22:32 Review of Systems ROS Statement: Except As Marked, All Systems Reviewed And Found Negative (As per HPI, otherwise negative) Constitutional: Negative for: Fever ENT: Positive for: Throat Pain. Negative for: Nose Discharge Respiratory: Positive for: Shortness of Breath, Sputum (green) Musculoskeletal: Negative for: Other (leg swelling) Physical Exam - Reviewed Nursing Documentation Reviewed: Yes Vital Signs Reviewed: Yes - Physical Exam Appears: Positive for: Non-toxic, No Acute Distress Head Exam: Positive for: ATRAUMATIC, NORMOCEPHALIC Skin: Positive for: Warm, Dry Eye Exam: Positive for: EOMI, PERRL ENT: Negative for: Pharyngeal Erythema, Tonsillar Exudate Neck: Positive for: Painless ROM, Supple Cardiovascular/Chest: Positive for: Regular Rate, Rhythm. Negative for: Murmur Respiratory: Positive for: Wheezing (diffused, scattered), Respiratory Distress (mild). Negative for: Rales Gastrointestinal/Abdominal: Positive for: Soft. Negative for: Tenderness Back: Positive for: Normal Inspection. Negative for: Muscle Spasm Extremity: Positive for: Normal ROM, Pedal Edema (trace of bilateral). Negative for: Deformity Lymphatic: Negative for: Adenopathy Neurologic/Psych: Positive for: Alert, Oriented (x3). Negative for: Motor/ Sensory Deficits - Laboratory Results Result Diagrams: 09/05/17 20:00 09/05/17 20:00 - ECG O2 Sat by Pulse Oximetry: 97 (RA) Pulse Ox Interpretation: Normal Medical Decision Making Medical Decision Making: Time: 1944 Initial Impression: shortness of breath on exertion Differential Diagnosis includes but is not limited to: CHF, acute coronary syndrome, bronchitis, flu, pneumonia Initial Plan: --EKG --B-type Natriuretic peptide --CMP --Magnesium --Phosphorous --Troponin --ED Urine --ED Urine dipstick --CBC w/ Differential --PTT --Prothrombin Time --Chest Two Views --Albuterol 9ml --SOLU-Medrol 125mg --Blood culture --peak flow pre/post TX --Influenza A B --Reevaluation Time: 2134 labs demonstrate no clinical significant abnormalities and X-ray presents no acute disease. Patient feels better and is eager to be discharged. Clinical Impression: chronic obstructive pulmonary disease with acute lower respiratory infxn Upon provider evaluation patient is medically stable, and requires no further treatment in the ED at this time. Patient will be discharged with Albuterol sulfate 3 Ml for asthma, Zithromax 250mg and Prednisone 50 mg for acute bronchitis and COPD. Counseling was provided and all questions were answered regarding diagnosis and need for follow up with PMD. There is agreement to discharge plan. Return if symptoms persist or worsen. Scribe Attestation: Documented by Foreign Gonzalez, acting as a scribe for Cece Armenta MD Provider Scribe Attestation: All medical record entries made by the Scribe were at my direction and personally dictated by me. I have reviewed the chart and agree that the record accurately reflects my personal performance of the history, physical exam, medical decision making, and the department course for this patient. I have also personally directed, reviewed, and agree with the discharge instructions and disposition. Disposition - Clinical Impression Clinical Impression: Chr obstructive pulmonary disease w/ acute lower respiratory infxn - Patient ED Disposition Is Patient to be Admitted: No Counseled Patient/Family Regarding: Studies Performed, Diagnosis, Need For Followup, Rx Given - Disposition Referrals: Vinnie Lincoln MD [Staff Provider] - 09/08/17 Disposition: Routine/Home Disposition Time: 21:30 Condition: IMPROVED Prescriptions: Albuterol 0.083% [Albuterol Sulfate 3 Ml] 3 ml IH Q4 PRN #50 neb PRN Reason: asthma Azithromycin [Zithromax] 250 mg PO DAILY #6 dose Prednisone 50 mg PO DAILY #4 tablet Instructions: Acute Bronchitis, Exacerbation of COPD (DC) Forms: [employer] (Upper Sorbian)
[2017-09-05 21:28] VITALS: BP 147/93; PULSE 104; RESP 16; TEMP 98.2
[2017-09-05 21:29] VITALS: O2SAT 97
--- NOTE | 2017-09-06 09:37 | RAD ---
HISTORY: sob COMPARISON: COMPARISON IS MADE WITH 10/17/2016 TECHNIQUE: Chest PA and lateral FINDINGS: LUNGS: No active pulmonary disease. PLEURA: No significant pleural effusion identified. No pneumothorax apparent. CARDIOVASCULAR: The heart is normal in size. Left-sided pacemaker is again seen in place. OSSEOUS STRUCTURES: No significant abnormalities. VISUALIZED UPPER ABDOMEN: Normal. OTHER FINDINGS: None. IMPRESSION: No active disease.
--- NOTE | 2017-09-07 14:30 | CARD ---
APPROVED REPORT EKG Measurement Heart [id number] ID [id number] <Conclusion> Sinus tachycardia with one premature ventricular complexes Biatrial enlargement T wave abnormality, consider lateral ischemia Abnormal ECG
== END 2017-09-05 21:30 | disposition home or self-care (01) ==
LOC: H.ER 18:40
DX: J44.0 Chronic obstructive pulmonary disease with (acute) lower respiratory infection (principal); Z86.59 Personal history of other mental and behavioral disorders; Z87.891 Personal history of nicotine dependence
CPT/HCPCS: 71046; 80053; 83735; 83880; 84100; 84484; 85025; 85610; 85730; 87040; 87804; 96374; 99285; J2930

== ENCOUNTER 2018-01-06 05:33 | Emergency (ER) | payer MEDICARE ==
[2018-01-06 05:33] VITALS: BMI 35.0
[2018-01-06] MEDS ORDERED: Albuterol-Ipratrop 3 mg / 0.5 (3 ml) UD INH STA ×4 (06:26→09:23)
[2018-01-06] MEDS ORDERED: Albuterol-Ipratrop 3 mg / 0.5 (3 ml) UD ONE (06:30)
--- NOTE | 2018-01-06 06:54 | ED PDOC ---
HPI: SOB/CHF/COPD Time Seen by Provider: 01/06/18 05:40 Chief Complaint (Nursing): Shortness Of Breath Chief Complaint (Provider): Shortness Of Breath History Per: Patient History/Exam Limitations: no limitations Onset/Duration Of Symptoms: Days Current Symptoms Are (Timing): Still Present Additional Complaint(s): Jonny Logan is a 57 year old female with a past medical history of sarcoidosis, asthma, and CHF s/p pacemaker who is presenting to the ED for evaluation of shortness of breath. Patient states that she finished her 10 day course of prednisone last Thursday (5 days ago) as well as antibiotics prescribed by Dr. Lincoln for cough and chest tightness. Since Thursday, patient reports worsening of the same symptoms and complains of chest tightness, shortness of breath, and productive cough with white phlegm. She denies any fevers, or leg swelling. Patient notes some decreased exercise tolerance at the gym but can walk her normal amount with ease. PMD: Vinnie Lincoln I Past Medical History Reviewed: Historical Data, Nursing Documentation, Vital Signs Vital Signs: Last Vital Signs Temp 98.1 F 01/06/18 05:34 Pulse 66 01/06/18 05:34 Resp 14 01/06/18 06:00 BP 157/98 H 01/06/18 05:34 Pulse Ox 100 01/06/18 06:00 - Medical History PMH: Anxiety, Asthma, CAD, Cardia Arrhythmia, CHF, COPD, Depression, HTN, Pneumonia Denies: Arthritis, Atrial Fibrillation, Diabetes, HIV, Hypercholesterolemia, Hypothyroidism, Mitral Valve Prolapse, Peripheral Edema, Chronic Kidney Disease, Rheumatoid Arthritis, Seizures, TIA - Surgical History Surgical History: Back Surgery (lumbar) Denies: Pacemaker - Family History Family History: States: Unknown Family Hx - Social History Ex-Smoker (has not smoked in the last 12 months): Yes Alcohol: None Drugs: Denies - Immunization History Hx Tetanus Toxoid Vaccination: No Hx Influenza Vaccination: No Hx Pneumococcal Vaccination: No - Home Medications Home Medications: Ambulatory Orders Medication Instructions Recorded Albuterol 0.083% [Albuterol 0.083% 2.5 mg NEB BID 10/17/16 Inhal Marilou (2.5 mg/3 ml) UD] Albuterol Sulfate [Proair Hfa] 2 puff NEB PRN PRN 10/17/16 Carvedilol [Coreg] 12.5 mg PO BID 10/17/16 Cyclobenzaprine [Flexeril] 10 mg PO DAILY 10/17/16 Fluticasone/Salmeterol 100/50 2 puff NEB DAILY 10/17/16 [Advair Diskus 100/50] Furosemide [Lasix] 40 mg PO DAILY 10/17/16 Omeprazole 40 mg PO DAILY 10/17/16 Potassium Chloride [K-Dur 20 mEq 20 meq PO DAILY 10/17/16 ER Tab] Ramipril [Altace] 10 mg PO DAILY 10/17/16 oxyCODONE [oxyCODONE Immediate 10 mg PO PRN PRN 10/17/16 Release Tab] Albuterol 0.083% [Albuterol 3 ml IH Q4 PRN #50 neb 09/05/17 Sulfate 3 Ml] Azithromycin [Zithromax] 250 mg PO DAILY #6 dose 09/05/17 Prednisone 50 mg PO DAILY #4 tablet 09/05/17 - Allergies Allergies/Adverse Reactions: Allergies Allergy/AdvReac Type Severity Reaction Status Date / Time No Known Allergies Allergy Verified 08/21/15 22:32 Review of Systems ROS Statement: Except As Marked, All Systems Reviewed And Found Negative Constitutional: Negative for: Fever Cardiovascular: Positive for: Chest Pain (tightness) Respiratory: Positive for: Cough, Shortness of Breath Musculoskeletal: Negative for: Other (leg swelling) Physical Exam - Reviewed Nursing Documentation Reviewed: Yes Vital Signs Reviewed: Yes - Physical Exam Appears: Positive for: Non-toxic, No Acute Distress Head Exam: Positive for: ATRAUMATIC, NORMAL INSPECTION, NORMOCEPHALIC Skin: Positive for: Normal Color, Warm, DRY Eye Exam: Positive for: EOMI, Normal appearance, PERRL ENT: Positive for: Normal ENT Inspection Neck: Positive for: Normal, Painless ROM Cardiovascular/Chest: Positive for: Regular Rate, Rhythm. Negative for: Murmur Respiratory: Positive for: Wheezing (bilateral), Other (speaking in full sentences) Gastrointestinal/Abdominal: Positive for: Normal Exam, Soft. Negative for: Tenderness Back: Positive for: Normal Inspection. Negative for: L CVA Tenderness, R CVA Tenderness Extremity: Positive for: Normal ROM. Negative for: Deformity, Swelling Neurologic/Psych: Positive for: Alert, Oriented. Negative for: Motor/Sensory Deficits - ECG O2 Sat by Pulse Oximetry: 100 (RA) Pulse Ox Interpretation: Normal Medical Decision Making Medical Decision Making: Time: 6:26 A/P: 57 year old female with a history of sarcoidosis, asthma, and CHF s/p pacemaker, presenting with shortness of breath and chest tightness --Well appearing patient with stable vitals --Differentials include: Asthma Exacerbation, CHF, URI, Bronchitis, Pneumonia Orders: --BNP --BMP --Troponin --CBC --Duoneb 3 ml INH --SOLU-Medrol 125 mg IVP --Peak Flow Pre/Post Tx 7:00 Patient will be signed out to Dr. Hu pending labs and reevaluation. Scribe Attestation: Documented by Landy Antoine, acting as a scribe for Linus Espinoza MD. Provider Scribe Attestation: All medical record entries made by the Scribe were at my direction and personally dictated by me. I have reviewed the chart and agree that the record accurately reflects my personal performance of the history, physical exam, medical decision making, and the department course for this patient. I have also personally directed, reviewed, and agree with the discharge instructions and disposition. Disposition - Clinical Impression Clinical Impression: Dyspnea - Patient ED Disposition Is Patient to be Admitted: Transfer of Care - Disposition Disposition: Transfer of Care Disposition Time: 07:00 Condition: STABLE Forms: [employer] (Indonesian) Patient Signed Over To: Daniel Hu Handoff Comments: pending workup and re-eval
[2018-01-06 07:01] LABS: VENOUS BLOOD GAS BASE EXCESS 0.3 mmol/L (0.0-2.0); VENOUS BLOOD GAS PCO2 48 mmHg (40-60); VENOUS BLOOD GAS PO2 59 mm/Hg (30-55); VENOUS BLOOD PH 7.35 (7.32-7.43)
[2018-01-06 07:13] LABS: BASO % 0.5 % (0.0-2.0); EOS # 0.3 K/uL (0.0-0.7); EOS % 4.8 % (0.0-4.0); HEMOGLOBIN 12.6 g/dL (12.0-16.0); LYMPH # 2.8 K/uL (1.0-4.3); LYMPH % 41.7 % (20.0-40.0); MEAN CELL VOLUME 90.4 fl (81.0-99.0); MEAN CORPUSCULAR HEMOGLOBIN 29.9 pg (27.0-31.0); MEAN PLATELET VOLUME 10.1 fl (7.2-11.7); MONO # 0.8 K/uL (0.0-0.8); NEUT # 2.7 K/uL (1.8-7.0); NRBC % 0.1 % (0.0-0.0); RBC 4.23 Mil/uL (3.80-5.20); RED CELL DISTRIBUTION WIDTH 14.2 % (11.5-14.5); WHITE BLOOD COUNT 6.7 K/uL (4.8-10.8)
--- NOTE | 2018-01-06 07:26 | ED PDOC ---
- Laboratory Results Result Diagrams: 01/06/18 06:51 01/06/18 07:34 - ECG O2 Sat by Pulse Oximetry: 100 (RA) Pulse Ox Interpretation: Normal Medical Decision Making Medical Decision Making: Time: 07:00 --Patient care endorsed from Dr. Espinoza to Dr. Hu pending labs, reevaluation and discharge if normal. Patient's PMD is Dr. Sykes. Time: 08:23 FINDINGS: LUNGS: No consolidation appreciated. Interstitial and bronchovascular markings slightly prominent yet similar in appearance history of sarcoidosis. No interval change in this appearance noted. PLEURA: No significant pleural effusion identified. No pneumothorax apparent. CARDIOVASCULAR: Probable top-normal heart size. Pacemaker AICD device appears grossly intact and satisfactory and positioning. OSSEOUS STRUCTURES: No significant abnormalities. VISUALIZED UPPER ABDOMEN: Normal. OTHER FINDINGS: None. IMPRESSION: No interval pathology noted. Other findings as above. Time: 09:29 --Patient feels better at this time. She still has a mild wheeze. --Will reheck troponin levels, patient feels improved but still not 100 percent. --Order nebulizer treatment --Patient is speaking full sentences, comfortable, awake and is in no acute respiratory distress. Time: 12:03 --Repeat troponin is found negative Scribe Attestation: Documented by Jose Teran acting as a scribe for Daniel Hu MD Provider Scribe Attestation: All medical record entries made by the Scribe were at my direction and personally dictated by me. I have reviewed the chart and agree that the record accurately reflects my personal performance of the history, physical exam, medical decision making, and the department course for this patient. I have also personally directed, reviewed, and agree with the discharge instructions and disposition. Disposition - Clinical Impression Clinical Impression: Dyspnea - Disposition Condition: IMPROVED Additional Instructions: follow up with Dr sykes in 1-2 days return to the ED with any worsening or concerning symptoms Prescriptions: Albuterol HFA [Ventolin HFA 90 mcg/actuation (8 g)] 1 - 2 puff IH Q4H PRN #1 bottle PRN Reason: Wheezing Instructions: Asthma, Adult (DC), Shortness of Breath (Dyspnea) (DC) Forms: [employer] (Danish)
[2018-01-06 07:58] LABS: ALB/GLOB RATIO 1.1 (1.0-2.1); ALT/SGPT 25 U/L (9-52); AST/SGOT 29 U/L (14-36); BLOOD UREA NITROGEN 11 mg/dl (7-17); CALCIUM 9.9 mg/dL (8.4-10.2); GFR NON-AFRICAN AMERICAN > 60
[2018-01-06 08:09] LABS: B-TYPE NATRIURETIC PEPTIDE 747 pg/ml (0-900)
--- NOTE | 2018-01-06 08:25 | RAD ---
Date of service: 01/06/2018 HISTORY: hx of sarcoidosis, asthma, chf, pacemaker- sob COMPARISON: 09/05/2017 TECHNIQUE: Chest PA and lateral FINDINGS: LUNGS: No consolidation appreciated. Interstitial and bronchovascular markings slightly prominent yet similar in appearance history of sarcoidosis. No interval change in this appearance noted. PLEURA: No significant pleural effusion identified. No pneumothorax apparent. CARDIOVASCULAR: Probable top-normal heart size. Pacemaker AICD device appears grossly intact and satisfactory and positioning. OSSEOUS STRUCTURES: No significant abnormalities. VISUALIZED UPPER ABDOMEN: Normal. OTHER FINDINGS: None. IMPRESSION: No interval pathology noted. Other findings as above.
[2018-01-06 12:09] VITALS: BP 163/78; PULSE 78; RESP 17; TEMP 97.7
[2018-01-06 12:17] VITALS: O2SAT 100
== END 2018-01-06 12:30 | disposition home or self-care (01) ==
LOC: H.ER 05:33
DX: R06.00 Dyspnea, unspecified (principal); J44.9 Chronic obstructive pulmonary disease, unspecified; I11.0 Hypertensive heart disease with heart failure; Z95.0 Presence of cardiac pacemaker
CPT/HCPCS: 71046; 80053; 82803; 83880; 84484; 85025; 94150; 94640; 96374; 99285; J2930